=== PATIENT | female | born 1960 | race Caucasian/White ===

== ENCOUNTER 2018-12-01 12:38 | Day surgery (SDC) | payer OTHER ==
[2018-12-01] MEDS ORDERED: LIDOCAINE 4% SOLUTION 50 ML BTL (15:08)
[2018-12-01] MEDS ORDERED: MIDAZOLAM 1 MG/ML 2 ML INJ (16:02)
[2018-12-01] MEDS ORDERED: FENTAnyl 50 MCG/ML VIAL (16:02)
== END 2018-12-01 16:48 | disposition home or self-care (01) ==
LOC: GIL 12:38
DX: K20.8 Other esophagitis (principal); K29.80 Duodenitis without bleeding; I10 Essential (primary) hypertension; E11.9 Type 2 diabetes mellitus without complications; Z79.82 Long term (current) use of aspirin
CPT/HCPCS: 43239; 82962; 88305; 88312